=== PATIENT | female | born 1970 | race Caucasian/White ===

== ENCOUNTER 2017-04-26 21:10 | Emergency (ER) | payer OTHER ==
[~2017-04-26] VITALS: Ht 165.1 cm; Wt 69.7 kg
[~2017-04-26 21:10] MED LIST: VENLAFAXINE HC150 M1 PO
[2017-04-26] MEDS ORDERED: ULTRAM50 MG PO (22:32)
[2017-04-26] MEDS ORDERED: MOTRIN600 MG PO (22:32)
[2017-04-26 23:03] VITALS: BP 132/91
== END 2017-04-26 23:20 | disposition home or self-care (01) ==
LOC: EME 21:10
DX: S50.02XA Contusion of left elbow, initial encounter (principal); S09.90XA Unspecified injury of head, initial encounter; W10.9XXA Fall (on) (from) unspecified stairs and steps, initial encounter
CPT/HCPCS: 70450; 73080; 99281; 99284